=== PATIENT | male | born 1990 | race Caucasian/White ===

== ENCOUNTER 2024-12-26 15:35 | Outpatient (REF) | payer MEDICAID, SELFPAY ==
--- OUTSIDE RECORDS SUMMARY | 2024-12-26 16:22 | XMS_ITS | Encounter Summary ---
Author Organization [employer] Address [address] [facility] [address] [place] [address] Care Team Providers Care Innovation Analyst Name Role Phone Giulia Mendez MD Primary Care Pro vider Reason for Visit * Reason Onset Date Comments Lab Orders 12/26/2024 Encounter Details Date Type Department Care Team ([facility] Contact Info) Description 12/26/2024 Telephone [facility] [address] [place] [address] Giulia Mendez MD [address] [place] [address] Lab Orders Social History Tobacco Use Types Packs/Day Years Used Date Smoking Tobacco: Never Passive Smoke Exposure: Never Smokeless Tobacco: Never Alcohol Use Standard Drinks/Week Comments Yes 0 (1 standard drink = 0.6 oz pur e alcohol) rarely Depression Answer Date Recorded Patient Health Questionnaire-9 Score 0 12/26/2024 Patient Health Questionnaire-9 Score 0 12/26/2024 Last PHQ-9: Questionnaire Data Not on file 0 12/26/2024 Housing Stability Answer Date Recorded What is your housing situation today? I have camille rothman 12/26/[address] you li ve. Do you have problems with any of the following? None of the above 12/26/2024 Food Insecurity Answer Date Recorded Within the past 12 months, y ou worried that your food would run out before you got money to buy more: Never True 12/26/2024 Within the past 12 months,th e food you bought just didn't last and you didn't have enough money to get more: Never True Transportation Answer Date Recorded In the past 12 months, has l ack of transportation kept you from medical appts, meetings, work or from getting things needed for daily living? No 12/26/2024 Utilities Answer Date Recorded In the past 12 months, has t he electric, gas, oil or water company threatened to shut off services in your home? No 12/26/2024 Depression Answer Date Recorded Patient Health Questionnaire-2 Score 0 12/26/2024 Internet Access Answer Date Recorded Internet Access Q1 Yes 12/26/2024 Internet Access Q2 Not on file 12/26/2024 Sex and Gender Information Value Date Recorded Sex Assigned at Male 03/08/2022 10:15 AM EDT Legal Sex Male 10:15 AM EDT Gender Identity Male 10/23/2024 1:46 PM EDT Sexual Orientation Straight 10/23/2024 1: 46 PM EDT documented as of this encounter Functional Status * Over the past 2 weeks, how often have you been bothered by any of the following problems? Question Answer Date of Assessment Author Patient Health Questionnaire -2 Score 0 12/26/2024 2:02 PM EDT Aleyda Ott MA * Little interest or pleasure in doing things Answer Date of Assessment Author Not at all 12/26/2024 2:02 PM EDT Bacilio Ott MA * Feeling down, depressed, or hopeless Answer Date of Assessment Author Not at all 12/26/2024 2:02 PM EDT Bacilio Ott MA * Trouble falling or staying asleep, or sleeping too much Answer Date of Assessment Author Not at all 12/26/2024 2:02 PM KATELYNT Bacilio Ott MA * Feeling tired or having little energy Answer Date of Assessment Author Not at all 12/26/2024 2:02 PM KATELYNT Bacilio Ott MA * Poor appetite or overeating Answer Date of Assessment Author Not at all 12/26/2024 2:02 PM Bacilio Purdy MA * Feeling bad about yourself - or that you are a failure or have let yourself or your family down Answer Date of Assessment Author Not at all 12/26/2024 2:02 PM Bacilio Purdy MA * Trouble concentrating on things, such as reading the newspaper or watching television Answer Date of Assessment Author Not at all 12/26/2024 2:02 PM EDT Bacilio Ott MA * Moving or speaking so slowly that other people could have noticed? Or the opposite - being so fidgety or restless that you have been moving around a lot more than usual. Answer Date of Assessment Author Not at all 12/26/2024 2:02 PM EDT Bacilio Ott MA * Thoughts that you would be better off or hurting yourself in some way Answer Date of Assessment Author Not at all 12/26/2024 2:02 PM EDT Bacilio Ott MA * Patient Health Questionnaire-9 Score Answer Date of Assessment Author 0 12/26/2024 2:02 PM EDT Bacilio Ott MA * Over the last 2 weeks, how often have you been bothered by any of the following problems? Question Answer Date of Assessment Author Feeling nervous, anxious, or on edge 0 12/26/2024 2:02 PM EDT Aleyda Ott MA Not being able to stop or co ntrol worrying 0 12/26/2024 2:02 PM EDT Aleyda Ott MA Worrying too much about diff erent things 0 12/26/2024 2:02 PM EDT Aleyda Ott MA Trouble relaxing 0 12/26/2024 2:02 PM EDT Aleyda Quinn MA Being so restless that it is hard to sit still 0 12/26/2024 2:02 PM EDT Aleyda Ott MA Becoming easily annoyed or irritable 0 12/26/2024 2:02 PM KATELYNT Aleyda Ott MA Feeling afraid as if somethi ng awful might happen 0 12/26/2024 2:02 PM EDT Aleyda Ott MA MAUREEN-7 Total Score 0 12/26/2024 2:02 PM Aleyda Purdy MA documented as of this encounter Miscellaneous Notes * Telephone Encounter - Livier Adorno RN - 12/26/2024 3:31 PM EDT Pt walked in requesting labs for TB screening for work. Saw PCP Dr Murillo today. Will pend to PCP per protocol. documented in this encounter Plan of Treatment Upcoming Encounters Date Type Department Care Team (Late st Contact Info) Description 03/05/2025 9:00 AM EDT Office Visit [facility] [address] [place] [id number] Giulia Mendez MD [address] [place] [phone] Scheduled Orders Name Type Priority Associated Diagnoses Orde r Schedule T-SPOT .TB Lab Routine Screening for tuberculosis Expected: 12/26/2024 (Approximate), Expires: 12/26/2025 documented as of this encounter Visit Diagnoses Diagnosis Screening for tuberculosis Screening examination for pulmonary tuberculosis documented in this encounter Additional Health Concerns Assessment Noted Time PHQ-9 Depression Total Score: 0 12/27/19 2:02 PM EDT documented as of this encounter Care Teams Innovation Analyst Relationship Specialty Start Date End Date Giulia Mendez MD [address] [place] [id number] PCP - General Internal Medicine 10/24/24 documented as of this encounter
[2024-12-26 17:41] LABS: Hematocrit 43.4 % (42.0-52.0); Hemoglobin 14.7 g/dl (14.0-18.0); Mean Corpuscular HGB Conc 33.9 g/dl (31.0-36.0); Mean Corpuscular Hemoglobin 29.7 pg (27.0-33.0); Mean Corpuscular Volume 87.7 fL (80.0-98.0); NRBC Abs Auto 0.000 X10*3/uL (0.0-0.012); NRBC Pct Auto 0.0 /100WBC (0.0-0.2); Platelet Count 245 X10*3/uL (160-400); Red Blood Count 4.95 X10*6/uL (4.60-5.80); White Blood Count 5.0 X10*3/uL (4.8-10.8)
[2024-12-26 17:46] LABS: Hemoglobin A1C 120.2902 umol/L; Total Hemoglobin (HGBA1C) 3844.1709 umol/L
[2024-12-26 18:19] LABS: Alanine Aminotransferase 20 U/L (0-40); Albumin Level 4.8 g/dL (3.5-5.0); Alkaline Phosphatase 80 U/L (39-117); Anion Gap 11 (12-20); Aspartate Amino Transferase 20 U/L (5-37); Blood Urea Nitrogen 17 mg/dL (9-16); Calcium 9.5 mg/dL (8.4-10.2); Carbon Dioxide 28 mmol/L (22-29); Chloride 103 mmol/L (96-108); Estimated Glomerular Filt Rate > 60; Potassium 3.9 mmol/L (3.3-5.1); Sodium 138 mmol/L (135-145); Total Protein 7.8 g/dL (6.5-8.0)
[2024-12-26 22:05] LABS: CT PCR Urine NOT DETECTED (Not Detect.); NG PCR Urine NOT DETECTED (Not Detect.)
[2024-12-27 08:21] LABS: Syphilis Screen Nonreactive (Nonreactive)
[2024-12-27 08:30] LABS: HBS Num1 32.85 mIU/mL (0-7.99); HBc Num1 0.10 S/CO (0.00-0.79); HBsAGNum1 0.59 S/CO (0.00-0.99); HIV Num 1 0.06 S/CO (0.00-0.99); Hepatitis B Surface Antigen Negative (Negative); ~HepC Num1 0.13 S/CO (0.00-0.79); ~Hepatitis B Surface Antibody REACTIVE (Nonreactive); ~Hepatitis C Antibody Nonreactive (Nonreactive)
[2024-12-28 15:03] LABS: TS Negative Control Passed; TS Panel A 0; TS Panel B 0; TS Positive Control Passed; TSpotTB Negative (Negative)
== END 2024-12-26 15:36 | disposition home or self-care (01) ==
LOC: HO.HHCL 15:35
PROVIDERS: PCP Student in an Organized Health Care Education/Training Program; Visit Provider Student in an Organized Health Care Education/Training Program
DX: Z00.00 Encounter for general adult medical examination without abnormal findings (principal); Z11.1 Encounter for screening for respiratory tuberculosis; Z11.3 Encounter for screening for infections with a predominantly sexual mode of transmission; Z11.8 Encounter for screening for other infectious and parasitic diseases; Z11.59 Encounter for screening for other viral diseases
CPT/HCPCS: 80053; 83036; 84443; 85027; 86481; 86704; 86706; 86780; 86803; 87340; 87389; 87491; 87591